=== PATIENT | male | born 1940 | race Caucasian/White ===

== ENCOUNTER 2021-05-14 13:26 | Outpatient (CLI) | payer MEDICARE, OTHER | END 2021-05-14 23:59 | disposition home or self-care (01) | LOC: RAD 13:26 | PROVIDERS: ATTEND Family Medicine | DX: K21.9 Gastro-esophageal reflux disease without esophagitis (principal); R13.14 Dysphagia, pharyngoesophageal phase | CPT/HCPCS: 74230 ==

== ENCOUNTER 2023-02-10 13:43 | Outpatient (CLI) | payer MEDICARE, OTHER ==
[2023-02-10] MEDS ORDERED: BARIUM SULFATE 340 ML SUSP.RECON***PROCEDURE AREA ONLY**DONT ENTER PO ONE (14:00)
== END 2023-02-10 23:59 | disposition home or self-care (01) ==
LOC: RAD 13:43
PROVIDERS: ATTEND Otolaryngology
DX: R13.12 Dysphagia, oropharyngeal phase (principal); R13.14 Dysphagia, pharyngoesophageal phase; R13.10 Dysphagia, unspecified; K21.9 Gastro-esophageal reflux disease without esophagitis
CPT/HCPCS: 74230